=== PATIENT | male | born 1990 | race Caucasian/White ===

== ENCOUNTER 2019-04-26 08:10 | Emergency (ER) | payer MEDICARE, MEDICAID, OTHER ==
--- NOTE | 2019-04-26 10:28 | CR ---
CHEST: 2 view CLINICAL HISTORY:Pain COMPARISON:None FINDINGS: The heart size, pulmonary vascular and hilar structures are normal. No infiltrate effusion or pneumothorax is seen. IMPRESSION: No acute cardiopulmonary process.
--- NOTE | 2019-04-26 10:31 | EDM.PDOC ---
ED HPI GENERAL MEDICAL PROBLEM - General Chief Complaint: Gastrointestinal Problem Stated Complaint: COUGHING, VOMITING Time Seen by Provider: 04/26/19 09:02 Source of Information: Reports: Patient, Family History Limitations: Reports: Other (This man has some speech problems that makes history difficult) - History of Present Illness INITIAL COMMENTS - FREE TEXT/NARRATIVE: This young man complains of cough and vomiting. Sometimes it feels like something maybe stuck in his throat. He's had lower esophageal problems in the past and a EGD last July in [place] showed lower esophageal irritation. That EGD was done after he actually seemed to choke and pass out. His symptoms have gotten a lot worse in the last 3 days. He doesn't really note any reflux into the throat. He's not using any kind of proton pump inhibitor. He does take clonidine which he has taken since he was a kid and this was to control the side effects of Ritalin which he takes for ADHD area patient does not have seizures. The patient doesn't know if the clonidine exacerbates his esophageal symptoms or not since he has taken it continuously for years - Related Data Allergies Allergy/AdvReac Type Severity Reaction Status Date / Time atropine Allergy Rash Verified 05/31/18 10:17 Home Meds: Home Meds Methylphenidate [Ritalin] 10 mg PO TID 05/31/18 [History] Ranitidine [Zantac] 75 mg PO BID 05/31/18 [History] risperiDONE [Risperdal] 2 mg PO BID 05/31/18 [History] Calcium Polycarbophil [Fibercon] 1 mg PO BID 04/26/19 [History] Lisinopril 10 mg PO DAILY 04/26/19 [History] Polyethylene Glycol 3350 [MiraLAX] 1 cap PO BID 04/26/19 [History] Topiramate 50 mg PO BID 04/26/19 [History] atorvaSTATin [Lipitor] 20 mg PO BEDTIME 04/26/19 [History] cloNIDine [Catapres] 0.1 mg PO ASDIRECTED 04/26/19 [History] Past Medical History HEENT History: Reports: Impaired Vision Cardiovascular History: Reports: High Cholesterol, Hypertension Gastrointestinal History: Reports: GERD, Other (See Below) Other Gastrointestinal History: chronic constipation Psychiatric History: Reports: ADHD, Learning Disability, Other (See Below) Other Psychiatric History: terets syndrome - Past Surgical History GI Surgical History: Reports: EGD, Other (See Below) Other GI Surgeries/Procedures: esophagitis Male Surgical History: Reports: Other (See Below) Other Male Surgeries/Procedures: kidney surgery Social & Family History - Tobacco Use Smoking Status *Q: Never Smoker - Caffeine Use Caffeine Use: Reports: None - Recreational Drug Use Recreational Drug Use: No ED ROS GENERAL - Review of Systems Review Of Systems: See Below ED EXAM, GI/ABD - Physical Exam Exam: See Below Exam Limited By: No Limitations General Appearance: Alert, WD/WN, No Apparent Distress Eyes: Bilateral: Normal Appearance Throat/Mouth: Normal Inspection, Normal Oropharynx Neck: Normal Inspection Respiratory/Chest: Lungs Clear Cardiovascular: Tachycardia (Mild tachycardia) GI/Abdominal Exam: Non-Tender Back Exam: Normal Inspection Extremities: Normal Inspection Neurological: Alert, Oriented Psychiatric: Normal Affect Skin Exam: Warm, Dry Course - Vital Signs Last Recorded V/S: Last Vital Signs Temp 36.6 C 04/26/19 08:30 Pulse 113 H 04/26/19 08:30 Resp 20 04/26/19 08:30 BP 168/92 H 04/26/19 08:30 Pulse Ox 97 04/26/19 08:30 - Orders/Labs/Meds Orders: Active Orders 24 hr Category Date Time Status EKG Documentation Completion [RC] ASDIRECTED Care 04/26/19 09:17 Active EKG 12 Lead [EK] Urgent Ther 04/26/19 09:17 Ordered Labs: Laboratory Tests 04/26/19 04/26/19 Range/Units 09:21 09:21 WBC 4.0 L (4.5-11.0) K/uL RBC 4.93 (4.30-5.90) M/uL Hgb 14.5 (12.0-15.0) g/dL Hct 42.2 (40.0-54.0) % MCV 86 (80-98) fL MCH 29 (27-31) pg MCHC 34 (32-36) % Plt Count 227 (150-400) K/uL Neut % (Auto) 66 (36-66) % Lymph % (Auto) 25 (24-44) % [place] % (Auto) 8 H (2-6) % Eos % (Auto) 0 L (2-4) % Baso % (Auto) 1 (0-1) % Sodium 142 (140-148) mmol/L Potassium 3.7 (3.6-5.2) mmol/L Chloride 105 (100-108) mmol/L Carbon Dioxide 26 (21-32) mmol/L Anion Gap 11.4 (5.0-14.0) mmol/L BUN 10 (7-18) mg/dL Creatinine 0.8 (0.8-1.3) mg/dL Est Cr Clr Drug Dosing 108.28 mL/min Estimated GFR (MDRD) > 60 (>60) Glucose 99 (74-106) mg/dL Calcium 9.4 (8.5-10.1) mg/dL - Radiology Interpretation Free Text/Narrative:: Chest x-ray appears normal - Re-Assessments/Exams Free Text/Narrative Re-Assessment/Exam: 04/26/19 10:38 EKG shows sinus tachycardia 107 bpm there is an inverted T-wave in lead III but no others. No ischemic changes. I discussed case with Dr. Yair Hidalgo and he would like to do an EGD on him day after tomorrow. He asked me to put him on Protonix 40 mg twice daily he has for 40 mg IV right now but had don't think that this really needed based on the patient's condition. My impression is the patient is having gastroesophageal reflux and is probably worsened by the anticholinergic effects of clonidine. Departure - Departure Time of Disposition: 10:26 Disposition: Home, Self-Care 01 Condition: Fair Clinical Impression: Gastroesophageal reflux disease with apnea - Discharge Information Instructions: Food Choices for Gastroesophageal Reflux Disease, Adult, Gastroesophageal Reflux Disease, Adult, [id number] Referrals: PCP,None [Primary Care Provider] - Forms: ED Department Discharge Additional Instructions: Surgery will contact you on Friday 04/27 to tell you a time to be here for your EGD on 04/28/19 Stop Clonidine. It can make reflux worse. If needed to control heart rate then take Metoprolol 50 mg twice daily. Take Protonix (pantoprazole) 40 mg twice daily every day. Your cough is probably being caused by uncontrolled gastroesophageal reflux - My Orders Last 24 Hours: My Active Orders 04/26/19 09:17 EKG Documentation Completion [RC] ASDIRECTED EKG 12 Lead [EK] Urgent - Assessment/Plan Last 24 Hours: My Active Orders 04/26/19 09:17 EKG Documentation Completion [RC] ASDIRECTED EKG 12 Lead [EK] Urgent
== END 2019-04-26 10:40 | disposition home or self-care (01) ==
LOC: JP.ED 08:10
DX: K21.9 Gastro-esophageal reflux disease without esophagitis (principal); R06.81 Apnea, not elsewhere classified; E78.00 Pure hypercholesterolemia, unspecified; I10 Essential (primary) hypertension; F90.9 Attention-deficit hyperactivity disorder, unspecified type; Z88.8 Allergy status to other drugs, medicaments and biological substances; Z79.899 Other long term (current) drug therapy
CPT/HCPCS: 36415; 71046; 71046-26; 80048; 85025; 93005; 93010; 99284; 99284-25

== ENCOUNTER 2019-04-28 05:31 | Day surgery (SDC) | payer MEDICARE, MEDICAID ==
[2019-04-28] MEDS ORDERED: Dextrose 5%-Lactated Ringers 1,000 ML IV SCH (06:45)
[2019-04-28] MEDS ORDERED: Propofol 200 MG/20 ML SDV ONE (06:48)
[2019-04-28] MEDS ORDERED: Midazolam 1 MG/ML 2 ML SDV ONE (06:48)
[2019-04-28] MEDS ORDERED: fentaNYL 100 MCG/2 ML SDV ONE (06:48)
[2019-04-28] MEDS ORDERED: Ondansetron 4 MG/2 ML SDV ONE (07:17)
--- NOTE | 2019-05-02 23:27 | OR ---
DATE OF PROCEDURE: 04/28/2019 PREOPERATIVE DIAGNOSIS: Severe gastroesophageal reflux disease. POSTOPERATIVE DIAGNOSES: 1. Severe gastroesophageal reflux disease associated with moderate-sized hiatal hernia and active gastroesophageal reflux disease. 2. Mild antral gastritis. OPERATIVE PROCEDURE: Esophagogastroduodenoscopy with: 1. Biopsies of antrum for CLOtest. 2. Biopsy of esophagogastric junction for histologic evaluation. ANESTHESIA: IV sedation. INDICATION FOR PROCEDURE: This is a 29-year-old with significant developmental delay issues, presenting with what appears to be quite severe episodes of reflux at times causing coughing and aspiration events. He has been advised medical management, and presently this has become increasingly refractory, and the plan is to proceed with upper GI endoscopy with biopsies and/or dilation as indicated. Potential risks including bleeding and perforation were discussed, and the patient wishes to proceed. DETAILS OF PROCEDURE: The patient was taken to the operating room and placed in a left lateral decubitus position. IV sedation was administered, after which the upper GI endoscope was passed orally through the length of the esophagus and then into the stomach with retroflexion view of the fundus and thereafter through the pyloric channel into the junction of 3rd and 4th portions of the duodenum. Findings included some mild redness of the hypopharynx and larynx consistent with ongoing reflux. Esophageal sphincter and esophageal body were unremarkable. The patient did have roughly 2 to 3 cm hiatal hernia present with active gastroesophageal reflux disease above that. There appeared to be some upward extension of the gastroesophageal junction mucosal line above the upper gastric folds as well as 3 small islands of columnar type mucosa in the area at and above the EG junction as well. There is no stricturing. No plaquing or other signs of neoplasia. Remainder of the stomach showed some mild redness in the antrum. Otherwise, the visualized portion of the stomach, pyloric channel, and duodenum were unremarkable. At this point, biopsies were obtained from the antrum and sent for CLOtest for H pylori. Multiple biopsies then obtained from the esophagogastric junction and sent for histologic evaluation. Minimal bleeding from the biopsy sites was seen, and the procedure then concluded. The patient was taken to the recovery room in satisfactory condition. Long discussion was held with the parents, and at this point given the severity of these symptoms, they wished to proceed with a Silver fundoplication. Of note, he does not report any dysphagia as far as the swallowing the food downward in the area of the middle or lower chest, so I do not think we are dealing with esophageal motility disorder and a Silver fundoplication would appear to be the next appropriate step. Potential risks of the procedure were reviewed with parents including bleeding, infection, dysphagia following the procedure, problems with disorder of gastric emptying rate, gas bloat syndrome as well as possible incomplete relief of reflux symptoms were all gone over and they wished to proceed with surgery scheduled for this coming Thursday. Yair Hidalgo MD /[id number]
== END 2019-04-28 10:05 | disposition home or self-care (01) ==
LOC: JP.SDS 05:31
PROVIDERS: ATTEND Surgery
DX: K21.0 Gastro-esophageal reflux disease with esophagitis (principal); K44.9 Diaphragmatic hernia without obstruction or gangrene; K29.70 Gastritis, unspecified, without bleeding; J38.7 Other diseases of larynx; J39.2 Other diseases of pharynx; I10 Essential (primary) hypertension; E78.5 Hyperlipidemia, unspecified; F90.9 Attention-deficit hyperactivity disorder, unspecified type; Z88.8 Allergy status to other drugs, medicaments and biological substances
CPT/HCPCS: 43239; 87081; 88305; J2250; J2405; J2704; J3010; J7042

== ENCOUNTER 2019-05-03 05:28 | Inpatient (IN) | payer MEDICARE, OTHER, MEDICAID ==
[2019-05-03] MEDS ORDERED: Acetaminophen 500 MG Tab PO ONE (05:45)
[2019-05-03] MEDS ORDERED: Dextrose 5%-Lactated Ringers 1,000 ML IV SCH (06:00)
[2019-05-03] MEDS ORDERED: ceFAZolin 2 GM in Premix Bag 1 BAG IV ONE (07:15)
[2019-05-03] MEDS ORDERED: Ropivacaine 28 ML, dexAMETHasone 8 MG, EPINEPHrine 0.4 MG, Sodium Chloride 0.9% 49.6 ML NERVRT SCH ×4 (07:30)
[2019-05-03] MEDS ORDERED: Ketamine 500 MG/5 ML MDV IV SCH (07:30)
[2019-05-03] MEDS ORDERED: Ondansetron 4 MG/2 ML SDV ONE (07:34)
[2019-05-03] MEDS ORDERED: fentaNYL 250 MCG/5 ML SDV ONE (07:34)
[2019-05-03] MEDS ORDERED: Glycopyrrolate 0.2 MG/ML 5 ML MDV ONE (07:34)
[2019-05-03] MEDS ORDERED: Rocuronium 50 MG/5 ML Vial ONE (07:34)
[2019-05-03] MEDS ORDERED: Dexamethasone 4 MG/ML SDV ONE (07:34)
[2019-05-03] MEDS ORDERED: Propofol 200 MG/20 ML SDV ONE (07:34)
[2019-05-03] MEDS ORDERED: Neostigmine Methylsulfate 1 MG/ML 5 ML Syringe ONE (07:34)
[2019-05-03] MEDS ORDERED: Sugammadex Sodium 200 MG/2 ML VIAL ONE (07:59)
[2019-05-03] MEDS ORDERED: Lactated Ringers 1,000 ML ONE (08:44)
[2019-05-03] MEDS ORDERED: Ondansetron 4 MG/2 ML SDV IVPUSH ONE (09:12)
[2019-05-03] MEDS ORDERED: HYDROmorphone 1 MG/ML Syringe IV PRN (10:51)
[2019-05-03] MEDS ORDERED: HYDROmorphone 0.5 MG/0.5 ML Syringe IVPUSH PRN (10:51)
[2019-05-03] MEDS: Methylphenidate 10 MG Tab PO SCH ×2 (12:52→16:59)
[2019-05-03] MEDS: cloNIDine 0.1 MG Tab PO SCH ×2 (12:52→16:57)
[2019-05-03] MEDS: Acetaminophen 500 MG Tab PO PRN ×2 (12:52→20:24)
[2019-05-03] MEDS ORDERED: Pantoprazole 40 MG Vial IV SCH (14:00)
[2019-05-03] MEDS: Dextrose 5%-Lactated Ringers 1,000 ML IV SCH ×2 (14:26→23:58)
[2019-05-03] MEDS: ceFAZolin 2 GM in Sodium Chloride 0.9% 50 ML IV SCH (16:56)
[2019-05-03] MEDS: Calcium Polycarbophil 625 MG Tab PO SCH (20:24)
[2019-05-03] MEDS: risperiDONE 1 MG Tab PO SCH (20:24)
[2019-05-03] MEDS: Topiramate 25 MG Tab PO SCH (20:24)
[2019-05-04] MEDS: ceFAZolin 2 GM in Sodium Chloride 0.9% 50 ML IV SCH ×2 (00:02→07:46)
[2019-05-04] MEDS: Ondansetron 4 MG/2 ML SDV IVPUSH PRN ×2 (00:04→09:17)
[2019-05-04] MEDS: Acetaminophen 500 MG Tab PO PRN ×3 (07:43→22:02)
[2019-05-04] MEDS ORDERED: Ondansetron 4 MG Tab.DIS PO PRN (08:06)
[2019-05-04] MEDS: Dextrose 5%-Lactated Ringers 1,000 ML IV SCH ×2 (09:05→18:43)
[2019-05-04] MEDS: cloNIDine 0.1 MG Tab PO SCH ×3 (09:17→17:23)
[2019-05-04] MEDS: HYDROmorphone 2 MG Tab PO PRN ×2 (09:17→20:41)
[2019-05-04] MEDS: risperiDONE 1 MG Tab PO SCH ×2 (09:18→20:34)
[2019-05-04] MEDS: Calcium Polycarbophil 625 MG Tab PO SCH ×2 (09:18→20:34)
[2019-05-04] MEDS: Topiramate 25 MG Tab PO SCH ×2 (09:18→20:34)
[2019-05-04] MEDS: Lisinopril 10 MG Tab PO SCH (09:19)
[2019-05-04] MEDS: Methylphenidate 10 MG Tab PO SCH ×3 (09:26→17:27)
--- NOTE | 2019-05-04 10:59 | PN ---
DATE OF SERVICE: 05/04/2019 SUBJECTIVE: Braeden is postoperative day 1. His pain has been controlled. He has had some hiccups, which has resolved. He has been taking ice chips. He has no other concerns or questions. OBJECTIVE: GENERAL: Braeden Massey is a 29-year-old male. He is alert and orientated, sitting up in the chair. Both parents are here. VITAL SIGNS: 98.9, 75, 18, blood pressure 129/65. HEENT: Negative. NECK: Supple. HEART: Regular rate and rhythm. LUNGS: Clear. ABDOMEN: Dressings dry and intact. Abdominal binder is on. EXTREMITIES: Without peripheral edema. ASSESSMENT: Laparoscopic repair of paraesophageal diaphragmatic hernia with mesh and excision of mediastinal lipoma for paraesophageal hernia for gastroesophageal reflux disease refractory to medical management and mediastinal lipoma, date of surgery is 05/03/2019. PLAN: 1. Clear liquid diet, advance to full liquid diet if tolerating clear liquid diet, 2 at noon. 2. Decrease IV to D5 LR. 3. Discontinue IV Dilaudid. 4. Dilaudid 2 mg p.o. q.4 hours p.r.n. pain. 5. Zofran ODT 4 mg every 4 hours p.r.n. nausea. 6. Discontinue continuous pulse oximetry. 7. Dietary consult. 8. Good pulmonary toilet. 9. We will evaluate p.r.n. or in a.m. Winnie Jain PA-C /[id number]
[2019-05-04] MEDS: Pantoprazole 40 MG Tab.CR PO SCH (12:43)
[2019-05-05] MEDS: Dextrose 5%-Lactated Ringers 1,000 ML IV SCH (04:43)
[2019-05-05] MEDS: HYDROmorphone 2 MG Tab PO PRN (04:49)
[2019-05-05] MEDS: Pantoprazole 40 MG Tab.CR PO SCH (07:46)
[2019-05-05] MEDS: cloNIDine 0.1 MG Tab PO SCH (08:02)
[2019-05-05] MEDS: Lisinopril 10 MG Tab PO SCH (08:03)
[2019-05-05] MEDS: Calcium Polycarbophil 625 MG Tab PO SCH (08:03)
[2019-05-05] MEDS: Methylphenidate 10 MG Tab PO SCH (08:04)
[2019-05-05] MEDS: risperiDONE 1 MG Tab PO SCH (08:04)
[2019-05-05] MEDS: Topiramate 25 MG Tab PO SCH (08:04)
--- NOTE | 2019-05-05 11:31 | DISCH ---
ADMISSION DIAGNOSES: 1. Gastroesophageal reflux disease refractory to medical management. 2. Tourette syndrome. 3. Essential hypertension. 4. Hyperlipidemia. 5. Attention deficit hyperactive disorder. 6. Drug-induced constipation. DISCHARGE DIAGNOSES: Laparoscopic repair of paraesophageal diaphragmatic hernia with mesh and excision of mediastinal lipoma for paraesophageal hernia for gastroesophageal reflux disease refractory to medical management and mediastinal lipoma. Date of surgery 05/03/2019. Surgeon, Yair Hidalgo MD. HISTORY: Braeden Landa, who goes by Bryson, is a pleasant 29-year-old male, who had GERD refractory to medical management. After preoperative evaluation and discussion of possible risks and possible complications, he wished to proceed with surgical procedure. HOSPITAL COURSE: Bryson had his surgery on 05/03/2019. He had no operative complications. On postop day #1, he was started on a clear liquid diet and advanced to a full liquid diet. His IV was decreased. He was started on oral pain medication. On postop day #2, his oral intake was adequate, vital signs were stable, pain was well managed, and he was able to be discharged to home. He did receive adequate dietary instructions. PHYSICAL EXAMINATION: GENERAL: Braeden Damon is a 29-year-old male. VITAL SIGNS: Height is 5 feet 6.93 inches and weight is 121 pounds. TPR is 98.6, 63, 16. Blood pressure 120/55. HEENT: Negative. NECK: Supple. HEART: Regular rate and rhythm. LUNGS: Clear. ABDOMEN: Negative. Incisions look good. Abdominal binder is on. EXTREMITIES: Without peripheral edema. DISPOSITION: Discharged to home. CONDITION: Stable and improving. HOME MEDICATIONS: Dilaudid 2 mg q.6 hours p.r.n. pain #28 and milk of magnesia 30 mL, 2 were sent home with the patient. He is to resume his home medication of Prinivil 10 mg once daily, Ritalin 10 mg 3 times a day, Risperdal 2 mg b.i.d., Zantac 150 mg, clonidine/Catapres 0.1 mg tablet 5 times a day, topiramate 50 mg b.i.d., FiberCon takes by mouth 2 times a day, Lipitor 20 mg at bedtime, multivitamin once a day, albuterol inhaler 1 to 2 puffs every 6 hours p.r.n. shortness of breath. FOLLOWUP APPOINTMENT: Yair Hidalgo MD, on 05/11/2019 at 11:15 a.m. DIET: Full liquid diet for 2 weeks. ACTIVITY: No lifting greater than 10 pounds for 2 weeks. Activity as tolerated. Shower/bathing: May shower. Keep operative site clean and dry. Wear abdominal binder for 2 weeks and then as tolerated. Notify provider if any fever, increased pain, nausea, vomiting. SPECIAL INSTRUCTION: Use incentive spirometer 10 times every hour while awake for 1 week and if any questions or concerns, call the [facility] Surgery Department at [phone].
--- NOTE | 2019-05-09 13:40 | OR ---
DATE OF PROCEDURE: 05/03/2019 PREOPERATIVE DIAGNOSIS: Gastroesophageal reflux disease, refractory to medical management. POSTOPERATIVE DIAGNOSES: 1. Large paraesophageal diaphragmatic hernia with gastroesophageal reflux disease, refractory to medical management. 2. Mediastinal lipoma. OPERATIVE PROCEDURE: Diagnostic laparoscopy with: 1. Repair of paraesophageal diaphragmatic hernia with mesh including Silver fundoplication (42485). 2. Excision of mediastinal lipoma (67078). ANESTHESIA: General. INDICATION FOR PROCEDURE: This is a 29-year-old presenting with ongoing gastroesophageal reflux disease with intermittently fairly severe symptoms despite ongoing medical management. After preoperative evaluation and discussion, he wished to proceed with a Silver fundoplication. The patient has some developmental delay, and his parents were present and actively participating in the decision making as well and all agreed to proceed. Potential risks including bleeding, infection, injury to underlying viscera, problems with fundoplication such as dysphagia, gas bloat syndrome, disorder of gastric emptying rate, as well as possible incomplete relief of reflux symptoms were all reviewed, and they wished to proceed. DETAILS OF PROCEDURE: The patient was taken to the operating room and after placed in a supine position and after general endotracheal anesthesia was induced, he was converted to a lithotomy position and the abdomen prepped and draped. 15 cm inferior and 5 cm left of xiphoid process, transverse incision was made and the peritoneal cavity entered under direct vision with an Optiview trocar and inflated to 15 mmHg pressure of CO2. Laparoscope was re- inserted. No underlying trocar insertion site injuries were seen. Following this, bilateral transversus abdominis plane blocks were placed, and 4 additional 5 mm trocars were placed across the upper and mid abdomen. The liver was retracted anteriorly. The patient was noted to have a fairly large paraesophageal diaphragmatic hernia with prolapse of the gastric fundus and perigastric fat in a plane anterior to the course of the esophagus. This was reduced and the peritoneum overlying was incised and reflected downward. During the course of the dissection, mediastinal lipoma was encountered, and this was excised. Eventually, the retroesophageal window was created and additional dissection allowed a 4 to 5 cm length of intraabdominal esophagus to be dissected free. The crural repair was then accomplished posteriorly with some 0 Ethibond sutures reinforced with PTFE pledgets. Because of the size of defect, a Phasix ST Mesh was constructed and positioned and cut in a way that it will lie over the crural repair posteriorly and slightly along the side of the esophagus along the right and left diaphragmatic crura. This was positioned in that location and fixed with some titanium tacking screws. Following this, the lesser omentum was divided away from the greater curvature of the stomach beginning in the upper aspect of the greater curvature. This was done with Harmonic scalpel and continued upward through the short gastric vessels including the highest and posterior short gastric vessels. This allowed a satisfactory mobilization of the fundus, which was retrieved through the retroesophageal window. Guidewire passed orally per Anesthesia. Over this, a 54-Divehi Savary-Bella was positioned and the 3-stitch 2 cm fundoplication was accomplished using 0 Ethibond sutures reinforced with PTFE pledgets. Two sutures were then placed between the fundoplication and the overlying diaphragm with the same stitch and pledget combination to help fix it in position. Each bites of the fundoplication included the underlying esophagus as well to help maintain adequate and satisfactory position of the fundoplication. At that point, no further problem was noted. Trocars were removed and the peritoneal cavity deflated. Incisions were closed with some 4- 0 Vicryl skin stitch, and the patient was taken to the recovery room in satisfactory condition. There were no evident complications. Yair Hidalgo MD /[id number]
== END 2019-05-05 10:50 | disposition home or self-care (01) | DRG 328 ==
LOC: JP.SDS 05:28 → JP.SDSSCHI 05:28 → JP.2SS 08:50 → EDSTATUS 12:00
PROVIDERS: ADMIT Surgery; ATTEND Surgery
PROC: 0BUT4JZ Supplement Diaphragm with Synthetic Substitute, Percutaneous Endoscopic Approach (ICD-10-PCS; principal; 2019-05-03)
PROC: 0WBC4ZX Excision of Mediastinum, Percutaneous Endoscopic Approach, Diagnostic (ICD-10-PCS; 2019-05-03)
DX: K21.9 Gastro-esophageal reflux disease without esophagitis (principal); K44.9 Diaphragmatic hernia without obstruction or gangrene; R06.81 Apnea, not elsewhere classified; D17.1 Benign lipomatous neoplasm of skin and subcutaneous tissue of trunk; E78.5 Hyperlipidemia, unspecified; K59.03 Drug induced constipation; F90.9 Attention-deficit hyperactivity disorder, unspecified type; H54.7 Unspecified visual loss; I10 Essential (primary) hypertension; F95.2 Tourette's disorder; Z88.8 Allergy status to other drugs, medicaments and biological substances
CPT/HCPCS: 88304; 94762; A9270-GY; C1713; C1781; C9113; J0171; J0690; J1100; J1170; J2405; J2704; J2710; J2795; J3010; J3490; J7042; J7050; J7120

== ENCOUNTER 2019-06-14 06:23 | Emergency (ER) | payer MEDICARE, MEDICAID ==
--- NOTE | 2019-06-14 07:53 | EDM.PDOC ---
ED HPI GENERAL MEDICAL PROBLEM - General Chief Complaint: Respiratory Problem Stated Complaint: NON STOP COUGH Time Seen by Provider: 06/14/19 07:28 Source of Information: Reports: Patient, Family, Old Records, RN Notes Reviewed History Limitations: Reports: No Limitations - History of Present Illness INITIAL COMMENTS - FREE TEXT/NARRATIVE: 29-year-old gentleman presents emergency department today complaint of cough, he has had a cough most of his life usually when he gets ill however this particular event the cough has been ongoing for the last 2 months. He recently had a Silver fundoplication done for chronic reflux disease which did not provide much relief for his cough. Review of records he was evaluated in summer emergency department thought to have viral bronchitis follow-up and walking clinic for thought to be post viral syndrome cough. He did receive prednisone during this event which may have helped. Then was seen in the emergency department March 2019 again for a cough thought to be reflux referred to general surgery thus ended up with Silver fundoplication following EGD. Current residence of [place] up to her visiting for the summer does have primary care in [place] but not in the local area - Related Data Allergies Allergy/AdvReac Type Severity Reaction Status Date / Time atropine Allergy Rash Verified 06/14/19 07:17 Home Meds: Home Meds Methylphenidate [Ritalin] 10 mg PO TID 05/31/18 [History] risperiDONE [Risperdal] 1 mg PO BID 05/31/18 [History] Calcium Polycarbophil [Fibercon] 1 mg PO DAILY 04/26/19 [History] Polyethylene Glycol 3350 [MiraLAX] 1 cap PO BID 04/26/19 [History] Topiramate 50 mg PO BID 04/26/19 [History] atorvaSTATin [Lipitor] 20 mg PO BEDTIME 04/26/19 [History] cloNIDine [Catapres] 0.1 mg PO ASDIRECTED 04/26/19 [History] Multivitamin [Multivitamins] 1 tab PO DAILY 04/28/19 [History] Acetaminophen [Tylenol Extra Strength] 1,000 mg PO Q6H PRN tablet 05/05/19 [Rx] amLODIPine Besylate [Amlodipine Besylate] 10 mg PO DAILY 06/14/19 [History] Past Medical History HEENT History: Reports: Impaired Vision, Other (See Below) Other HEENT History: wears glasses Cardiovascular History: Reports: High Cholesterol, Hypertension, Other (See Below) Other Cardiovascular History: tachy Respiratory History: Reports: Other (See Below) Other Respiratory History: pneumonia as child Gastrointestinal History: Reports: Chronic Constipation, GERD, Other (See Below) Other Gastrointestinal History: chronic constipation Genitourinary History: Reports: Renal Calculus Psychiatric History: Reports: ADHD, Learning Disability, Other (See Below) Other Psychiatric History: tourettes syndrome - Past Surgical History HEENT Surgical History: Reports: None Cardiovascular Surgical History: Reports: None Respiratory Surgical History: Reports: None GI Surgical History: Reports: EGD, Other (See Below) Other GI Surgeries/Procedures: esophagitis Male Surgical History: Reports: Ureteral Stent, Other (See Below) Other Male Surgeries/Procedures: kidney surgery Social & Family History - Tobacco Use Smoking Status *Q: Never Smoker - Caffeine Use Caffeine Use: Reports: Coffee, Soda - Recreational Drug Use Recreational Drug Use: No ED ROS GENERAL - Review of Systems Review Of Systems: See Below Constitutional: Reports: No Symptoms HEENT: Reports: No Symptoms Respiratory: Reports: Shortness of Breath, Cough. Denies: Wheezing, Sputum Cardiovascular: Reports: No Symptoms GI/Abdominal: Reports: No Symptoms : Reports: No Symptoms ED EXAM, GENERAL - Physical Exam Exam: See Below Exam Limited By: No Limitations General Appearance: Alert, WD/WN, No Apparent Distress Throat/Mouth: Normal Inspection, Normal Lips, Normal Teeth, Normal Gums, Normal Oropharynx, Normal Voice, No Airway Compromise Head: Atraumatic, Normocephalic Neck: Normal Inspection, Supple, Non-Tender, Full Range of Motion Respiratory/Chest: No Respiratory Distress, Lungs Clear, Normal Breath Sounds, No Accessory Muscle Use, Chest Non-Tender Cardiovascular: Regular Rate, Rhythm, No Murmur Course - Vital Signs Last Recorded V/S: Last Vital Signs Temp 97.0 F 06/14/19 07:15 Pulse 94 06/14/19 07:15 Resp 20 06/14/19 07:15 BP 133/78 06/14/19 07:15 Pulse Ox 98 06/14/19 07:15 Departure - Departure Time of Disposition: 08:14 Disposition: Home, Self-Care 01 Condition: Fair Clinical Impression: Chronic cough - Discharge Information Referrals: PCP,None [Primary Care Provider] - Forms: ED Department Discharge Additional Instructions: Please report tomorrow morning at 845 register at [facility] for your pulmonary function test, Officer will repeat the test and go over with 2 afterwards completed tomorrow - Assessment/Plan Plan: Assessment Acuity = acute Site and laterality = chronic cough Etiology = unclear etiology suspicious for underlying reactive airway disease Manifestations = none Location of injury = Home Lab values = none Plan After further history it sounds like he may have got some relief from prednisone as well as albuterol inhaler. I was able to coordinate with respiratory therapy will set him up with pulmonary function tests with a methacholine challenge tomorrow morning at 9:00 I will have shift tomorrow morning I will be able to review this read it and then if it is positive for reactive airway disease prescribed appropriate treatment and then have him follow up with her primary care upon return home to [place] This note was dictated using [employer] voice recognition software please call with any questions on syntax or grammar.
== END 2019-06-14 08:32 | disposition home or self-care (01) ==
LOC: JP.ED 06:23
DX: R05 Cough (principal); I10 Essential (primary) hypertension; F90.9 Attention-deficit hyperactivity disorder, unspecified type; Z79.899 Other long term (current) drug therapy; E78.00 Pure hypercholesterolemia, unspecified; Z88.8 Allergy status to other drugs, medicaments and biological substances
CPT/HCPCS: 99282